=== PATIENT | female | born 1960 | race Caucasian/White ===

== ENCOUNTER 2022-08-30 23:07 | Emergency (ER) | payer BC, SELFPAY ==
[2022-08-30 23:11] VITALS: BP 137/73; PULSE 87; RESP 14; TEMP 36.7; O2SAT 99
--- NOTE | 2022-08-31 00:56 | ED.EAR ---
HPI - Ear Problem General Chief complaint: Ear <NE Panda Last Filed: 08/31/22 01:45> Stated complaint: R ear bleeding <NE Panda Last Filed: 08/31/22 01:45> Time Seen by Provider: 08/31/22 00:07 <NE Panda Last Filed: 08/31/22 01:45> Source: patient <NE Panda Last Filed: 08/31/22 01:45> Mode of arrival: ambulatory <NE Panda Last Filed: 08/31/22 01:45> Limitations: no limitations <NE Panda Last Filed: 08/31/22 01:45> History of Present Illness HPI Narrative: Patient is a 62-year-old female who presents the ED with report of right ear pain and drainage. Patient reports having sinus issues, congestion, bilateral ear pressure/pain for the last several days. She has been taking Claritin at home. Tonight, while watching TV, patient states she felt a crackle and pop in her right ear. She then developed bloody drainage and decreased hearing from the right ear. Patient denies any fever. Denies cough. Denies instrumentation into the ears. <NE Panda Last Filed: 08/31/22 01:45> Related Data Allergies/adverse reactions: Allergies Allergy/AdvReac Type Severity Reaction Status Date / Time Iodinated Contrast Media Allergy Intermediate RASH AND Verified 02/21/10 06:59 ITCHING <NE Panda Last Filed: 08/31/22 01:45> Review of Systems Review of Systems: CONSTITUTIONAL: Denies fever, chills, or sweats. ENT: See HPI. NEUROLOGIC: Denies headache, numbness, or weakness. <NE Panda Last Filed: 08/31/22 01:45> All systems reviewed & are unremarkable except as noted in HPI and below <NE Panda Last Filed: 08/31/22 01:45> [facility] Past Medical History Medical History: Medical History (Updated 09/01/22 @ 00:00 by Sharyn Chapincito) No pertinent past medical history <Diana Huffman PA-C - Last Filed: 08/31/22 01:45> Surgical History Surgical History: Surgical History (Updated 08/31/22 @ 01:40 by Diana Huffman PA-C) No pertinent past surgical history <Diana Huffman PA-C - Last Filed: 08/31/22 01:45> Social History Social History: Social History (Updated 08/31/22 @ 01:40 by Diana Huffman PA-C) Smoking status: Never smoker <Diana Huffman PA-C - Last Filed: 08/31/22 01:45> Exam Narrative: GENERAL: Well appearing, well-nourished, non-toxic, in no acute distress. HEAD: Normocephalic, atraumatic. EYES: PERRLA/EOMI, conjunctiva clear ENT: L TM bulging, erythematous, with effusion. Mild erythema noted to L EAC. R TM rupture with profuse bubbly/frothy purulent/bloody drainage from ear. NECK: Supple. No significant adenopathy, no masses. RESPIRATORY: Airway patent, respirations nonlabored. Clear to auscultation bilaterally, no rales, rhonchi, wheezing. CARDIOVASCULAR: Regular rate and rhythm without murmurs, rubs, or gallops. Radial pulses 2+ and equal bilaterally. MUSCULOSKELETAL: Moves all extremities. Strength/ROM intact without gross deformities. SKIN: Warm, dry, normal color. No rashes. NEURO: A&O X3. Speech clear. Cranial nerves II-XII grossly intact. Steady gait. No ataxic movements. PSYCHIATRIC: Appropriate mood and affect. Normal interaction. <Diana Huffman PA-C - Last Filed: 08/31/22 01:45> [employer]/PA Physician Supervision This is a was performed by both a physician and an APC. I performed all aspects of the MDM as documented w/ the following additions:8-year-old female presenting with ear pain. She has bilateral acute otitis media with a ruptured tympanic membrane on the right. Discharged on oral antibiotics and otic drops. Close ENT follow-up. All questions answered. Patient in agreement w/ disposition. <Damien Myles MD - Last Filed: 09/05/22 21:03> Vital Signs Vital signs: Vital Signs Temperat
[2022-08-31] MEDS: AMOXICILLIN/CLAVULANATE K 875-125 MG TAB 1 TABLET PO (01:02)
[2022-08-31] MEDS: ACETAMINOPHEN 500 MG TABLET 1000 MG PO (01:03)
== END 2022-08-31 01:10 | disposition home or self-care (01) ==
PROVIDERS: Emergency Provider Physician Assistant
DX: H65.191 Other acute nonsuppurative otitis media, right ear (principal); H72.91 Unspecified perforation of tympanic membrane, right ear
CPT/HCPCS: 99283; A9270